=== PATIENT | male | born 1975 | race African-American/Black ===

== ENCOUNTER 2025-07-25 23:50 | Emergency (ER) | payer OTHER, SELFPAY ==
--- NOTE | 2025-07-25 23:56 | ECG_ITS ---
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 Measurements Intervals [place] Rate: 59 P: 57 ID: [id number] QRS: 90 QRSD: 92 T: 30 QT: 428 QTc: 428 Interpretive Statements 1100 Sinus rhythm 2231 First degree AV block 4068 Nonspecific [place] abnormality 9150 abnormal ECG No previous ECG available for comparison Electronically Signed On 07-26-2025 5:54:52 EST by BABS GREEN M.D.
[2025-07-25 23:59] VITALS: BP 145/94; PULSE 75; TEMP 36.9; O2SAT 98; BMI 24.7
--- NOTE | 2025-07-26 00:08 | ED.GENADUL1 ---
HPI HPI - General Adult General Chief complaint: Psychiatric Symptoms Stated complaint: SUICIDAL IDEATION Time Seen by Provider: 07/25/25 23:56 Source: patient Mode of arrival: walk-in History of Present Illness HPI narrative: 49-year-old male presented to the emergency department to be evaluated from a psychiatric basis. He lives in the [facility] and drinks alcohol every day. He wanted to get help and went to [facility] and arrived there few hours ago. The last time he drank alcohol was 6 or 7 hours ago. He at the alcohol treatment center was reportedly upset and shaking and talking about hurting himself. He does not seem to have any physical complaints now. The patient reportedly tried to hang himself 2 days ago with a belt but the belt broke. Related Data Home Medications ?Medication ?Instructions ?Recorded ?Confirmed ergocalciferol (vitamin D2) 1,250 1,250 mcg PO DAILY 07/26/25 07/26/25 mcg (50,000 unit) capsule (Vitamin D2) folic acid 1 mg tablet 1 mg PO DAILY 07/26/25 07/26/25 hydroxyzine pamoate 50 mg capsule 50 mg PO Q8H 07/26/25 07/26/25 ibuprofen 800 mg tablet 800 mg PO Q8H PRN pain 07/26/25 07/26/25 melatonin 5 mg tablet 10 mg PO QPM 07/26/25 07/26/25 Allergies Allergy/AdvReac Type Severity Reaction Status Date / Time No Known Drug Allergies Allergy Verified 07/26/25 00:06 Opioid HPI Opioid Management Most Recent Opioid Data: Ur Phencyclidine Scrn, (NEGATIVE) Negative Today, 00:14 Review of Systems ROS Narrative A ten point review of systems is negative except as noted above. PFSH PFSH Medical History Suicide attempt ?T14.91XA - Suicide attempt, initial encounter (ICD-10) Depression ?F32.A - Depression, unspecified (ICD-10) Alcohol abuse ?F10.10 - Alcohol abuse, uncomplicated (ICD-10) Exam Narrative Exam Narrative: Nurses note and vital signs reviewed General:The patient appears well and in no apparent distress.Patient is sitting on the edge of the cart. Skin:Warm, dry, no pallor noted.There is no rash noted. No shi around his neck is noted. No swelling or bruising. Head:Normocephalic, atraumatic Eye: Normal conjunctiva, no drainage Ears, Nose, Mouth, and Throat: oral mucosa is moist. Nares patent. Cardiovascular:Regular Rate and Rhythm, not tachycardic Respiratory:Patient is in no distress, no accessory muscle use, lungs are clear to auscultation, no wheezing, rales or rhonchi Back:non-tender GI: Soft and nontender Musculoskeletal: The patient has no evidence of calf tenderness, no pitting edema, symmetrical pulses noted bilaterally Neurological:A&O x4, normal speech Psychiatric:Cooperative Constitutional Vital Signs, click to edit/add: Last Vital Signs Temp 98.5 F 07/25/25 23:59 Pulse 75 07/25/25 23:59 Resp 18 07/25/25 23:59 BP 145/94 H 07/25/25 23:59 Pulse Ox 98 07/25/25 23:59 O2 Del Method Room Air 07/25/25 23:59 Course Vital Signs Vital signs: Vital Signs Temperature 98.5 F 07/25/25 23:59 Pulse Rate 75 07/25/25 23:59 Respiratory Rate 18 07/25/25 23:59 Blood Pressure 145/94 H 07/25/25 23:59 Pulse Oximetry 98 07/25/25 23:59 Oxygen Delivery Method Room Air 07/25/25 23:59 Temperature 98.5 F 07/25/25 23:59 Pulse Rate 75 07/25/25 23:59 Respiratory Rate 18 07/25/25 23:59 Blood Pressure 145/94 H 07/25/25 23:59 Pulse Oximetry 98 07/25/25 23:59 Oxygen Delivery Method Room Air 07/25/25 23:59 Medical Decision Making [facility] Narrative Medical decision making narrative: The patient is medically cleared and is being held for mental health services to interview him in the morning and the patient will be signed out to Dr. Melton at change of shift. Differential Diagnosis Differential Diagnosis: Suicidal ideation, depression, alcohol abuse Lab Data Lab results reviewed: Yes I reviewed the patient's lab results Labs: Lab Results 07/26/25 07/26/25 Range/Units 00:14 00:28 WBC 8.9 (4.0-11.0) 10^3/uL RBC 4.88 (4.70-6.10) 10^6/uL Hgb 15.8 (14.0-18.0) g/dL Hct 43.9 (42.0-54.0) % MCV 90.0 (80.0-94.0) fL MCH 32.4 (25.9-34.0) pg MCHC 36.0 H (29.9-35.2) g/dL RDW 15.4 H (11.0-15.0) % Plt Count 291 (150-450) 10^3/uL MPV 9.5 (9.5-13.5) fL Neut % (Auto) 63.3 (43.0-75.0) % Lymph % (Auto) 28.0 (20.5-60.0) % Jack % (Auto) 6.7 (1.7-12.0) % Eos % (Auto) 1.0 (0.9-7.0) % Baso % (Auto) 0.8 (0.2-2.0) % Neut # (Auto) 5.6 (1.4-6.5) 10^3/uL Lymph # (Auto) 2.5 (1.2-3.8) 10^3/uL Jack # (Auto) 0.6 (0.3-0.8) 10^3/uL Eos # (Auto) 0.1 (0.0-0.7) 10^3/uL Baso # (Auto) 0.1 (0.0-0.1) 10^3/uL Abs Immat Gran (auto) 0.02 (0.00-0.03) 10^3/uL Imm/Tot Granulo (auto) 0.2 (0.0-0.5) % Sodium 144 (136-145) mmol/L Potassium 4.4 (3.5-5.1) mmol/L Chloride 106 (98-107) mmol/L Carbon Dioxide 26.9 (21.0-32.0) mmol/L Anion Gap 15.5 BUN 13.0 (7.0-18.0) mg/dL Creatinine 0.90 (0.70-1.30) mg/dL Est GFR ( Amer) >60 (>=60 mL/min/1.73m^2) Est GFR (Non-Af Amer) >60 (>=60 mL/min/1.73m^2) BUN/Creatinine Ratio 14.4 Glucose 100 (74-106) mg/dL Calcium 8.5 (8.5-10.1) mg/dL Urine Color Lt. yellow (YELLOW) Urine Clarity Clear (CLEAR) Urine pH 6.5 (5.0-9.0) Ur Specific [place] 1.010 (1.005-1.025) Urine Protein Negative (NEG/TRACE) mg/dL Urine Glucose (UA) Negative (NEGATIVE) mg/dL Urine Ketones Negative (NEGATIVE) mg/dL Urine Occult Blood Small A (NEGATIVE) Urine Nitrite Negative (NEGATIVE) Urine Bilirubin Negative (NEGATIVE) Urine Urobilinogen 1.0 (0.2-1.0) EU/dL Ur Leukocyte Esterase Negative (NEGATIVE) Urine RBC 2-5 A (0-2) #/HPF Urine WBC 0-2 A (NONE SEEN) #/HPF Ur Squamous Epith Cells Rare (NONE/RARE) #/LPF Urine Crystals None seen (None Seen) #/HPF Urine Bacteria Trace A (NONE SEEN) #/HPF Urine Casts None seen (NONE SEEN) #/LPF Urine Mucus None seen (NONE SEEN) Ur Culture Indicated? No Salicylates 5.9 (<=19.9) mg/dL Urine Opiates Screen Negative (NEGATIVE) Ur Buprenorphine Scrn Negative (NEGATIVE) Ur Oxycodone Screen Negative (NEGATIVE) Urine Methadone Screen Negative (NEGATIVE) Acetaminophen <2.0 L (10.0-30.0) ug/mL Ur Barbiturates Screen Negative (NEGATIVE) U Tricyclic Antidepress Negative (NEGATIVE) Ur Phencyclidine Scrn Negative (NEGATIVE) Ur Amphetamines Screen Negative (NEGATIVE) U Methamphetamines Scrn Negative (NEGATIVE) U Benzodiazepines Scrn Negative (NEGATIVE) Urine Cocaine Screen Negative (NEGATIVE) U Cannabinoids Screen Negative (NEGATIVE) Ethanol Quant 187 mg/dL ECG Data Attestation: I personally reviewed and interpreted this ECG as follows: (EKG on my interpretation shows sinus rhythm with first-degree block and no acute findings) Discharge Plan Discharge Patient Disposition: Still a Patient
[2025-07-26 00:21] LABS: Glucose Urine UA NEGATIVE (NEGATIVE)
[2025-07-26 00:31] LABS: Cannabinoid Screen Urine NEGATIVE (NEGATIVE); Cast Seen? NONE SEEN #/LPF (NONE SEEN); Crystals Seen? None Seen #/HPF (None Seen); Methamphetamines Screen Urine NEGATIVE (NEGATIVE); Tricyclic Antidepressant Urine NEGATIVE (NEGATIVE); Urine Culture Indicated NO
--- OUTSIDE RECORDS SUMMARY | 2025-07-26 00:32 | XMS_ITS | Data Portability ---
Author Organization DAT [facility], [facility] Address [address] [place] [address] Assessment No assessment recorded. Plan of Treatment Reminders Order DateSubmit DateProviderLast Modified ByOrganization DetailsLast Modified TimeDetailsAppointmentsNone recorded.Labglucose, fingerstick, blood10/21/2024 10/21/2024sabdallahIn-House Test, For Internal Use Only, Do Not Delete/merge, [id number] 12:51:46Referraldermatologist referral - dermoid cyst - forehead /[id number] [address] [place] [address], [address], 12/28/2023 08:46:14 ProceduresNone recorded.SurgeriesNone recorded.ImagingNone recorded.Medication Ordersdoxycycline monohydrate 100 mg zbxxxhi37[facility] [id number], [address], [place], [address], 10/21/2024 11:21:30prednisone 20 mg fzorzl86[facility] [id number], [address], [place], [address], 10/21/2024 11:21:27Mucinex 1,200 mg tablet, extended zwnawnu11 [facility] [id number], [address], [place], [address], Ph [phone] 11:21:24promethazine-DM 6.25 mg-15 mg/5 mL oral syrup [facility] [id number], [address], [place], [address], Ph [phone] [facility] 10:48:26Medrol (Shady) 4 mg tablets in a dose packOrlando Health [facility] [id number], [address], [place], [address], Ph [phone] [facility] 10:48:12cetirizine 10 mg izhtud6904/09/2024 10/21/2024[facility] [id number], [address], [place], [address], Ph ([phone]) [facility] 10:48:08Capron DMT 30 mg-30 mg eovmol5303/25/2024 04/09/2024[facility] [id number], [address], [place], [address], Ph ([phone]) [facility]-[id number] 17:04:39albuterol sulfate HFA 90 mcg/actuation aerosol xgfbbou99[facility] [id number], [address], [place], [address], Ph ([phone] [facility]-[id number] 10:48:07doxycycline hyclate 100 mg tzlcmts66[facility] [id number], [address], [place], [address], Ph :04:[phone] monohydrate 100 mg nqguysz19[facility] [id number], [address], [place], [address], Ph :21:21Mucinex DM 60 mg- 1,200 mg tablet,extended release 12 hrOr[facility] [id number], [address], [place], [address], Ph :21:[phone] 20 mg echxkx68[facility] [id number], [address], [place], [address], Ph :21:32benzonatate 200 mg tcjeayy57[facility] [id number], [address], [place], [address], Ph :21:[phone] Patient TargetsNo targets recorded. Patient Instructions Encounter Date Encounter Id Patient Instructions Last Modified By Organization Details Last Modified Time 11/27/2023 [id number] History and physical exam consistent with bronchitis. No evidence of pneumonia, sepsis or other acute cardiopulmonary process. Will treat with abx, steroids, cough medication as well as albuterol inhaler. Return to the office with any new or worsening symptoms. Patient agreeable with plan and verbalized understanding. sabdallah Not available 11/27/2023 18:52:25 11/30/2023 [id number] Epidermoid cyst of forehead Please f/u with surgical dental assistant for further evaluation and treatment, referral in place nishant Not available 11/30/2023 12:38:49 03/25/2024 [id number] BRONCHITIS Begin and complete entire antibiotic Begin and complete capron-DMT as directed use the albuterol inhaler as needed Other symptomatic relief- tylenol, ibuprofen, Vicks VapoRub Consider humidifier in room Push fluids and get plenty of rest Follow up with PCP in 3-5 days if symptoms fail to improve or worsen; sooner if needed Report to ER for difficulty breathing, shortness of breath, fever over 102 severe abdominal pain, or if symptoms worsen rkmpqpo80Sgz uhgvupikm78/17/2024 18:29:56Today patient is evaluated through telemedicine approx. [address]. Patient was asked and provided verbal consent to this telemedicine encounter. Patient is aware of the risks involved with telemedicine visit including limited diagnosis, treatment and possible need for re-evaluation. Pt is 48 year old with PMH of GERD, anxiety, HTN that presents with history consistent with acute bacterial bronchitis due to cough lasting for more than a week. Unable to complete PE due to telemed visit- pt was able to converse with ease without any audible resp. distress or needing to pause to catch breathe. Disposition: The patient was discharged home with a diagnosis bacterial bronchitis. The patient wasadvised to begin and complete the entire course of antibiotics as directed. It was recommended for the patient to call PCP to schedule a follow-up appointment should the symptoms continue to persist or worsen. Pt was educated on any fevers over 102, SOB, or CP patient would need to go to the ER forfurther evaluation. Pt was told that due to visit being over telemed, if S/S get worse he will either need to be seen NINA or go to the ER if S/S are severe. As the provider I am maintaining compliant with delivering telehealth due to patient is located in the [facility] during this visit at [facility]. Patient educated due to limited examination (no PE), that if S/S get worse or change pt will need to go to the emergency department. Patient should call PCP in 1-2 days if S/S do not change.piiagxq47Mhe /17/2024 18:36:13 [id number] to quit smokingspappachanNot qczoeubkb33/01/2024 17:24:30Learning About Benefits of Quitting SmokingspappachanNot available 04/09/2024 17:24:30Symptoms are consistent w/ a viral respiratory syndrome. Pt is strongly advised to quit smoking Pt has tried multiple trials of antibiotics and failed. Today trials with medrol dose pack and cough medication and antihistamine for as needed use. X-ray behavioral technician not available today to take chest X-ray Start taking medication as prescribed drink plenty of water. Advised to f/u with PCP in 3 - 5 days if his symptoms fails to resolve, Report to ER for inability to tolerate fluids, chest pain, shortness of breath, severe abdominal pain, fever over 102, Hemoptysis/hematemesis or any worsening sympt oms. Pt verbalized understanding of the A/PspappachanNot zgnlyykxd49/01/2024 17:30:[id number] on history of persistent sinus symptoms, likely bacterial sinusitis and URI. No evidence of Meningitis, OM, Strep or Pneumonia. Will start on oral antibiotics today. Encouraged patient to continue symptomatic and supportive care measures. RTC with any new or worsening symptoms. Patient verbalized understanding and agreeable with plan. blood sugar was not significantly elevated given he ate prior to arrival.Wilder available 10/21/2024 12:52:14 Reason for Referral Colon Therapist Referral for E pidermoid cyst of skin dermoid cyst - forehead dermoid cyst - forehead Referring Physician: Michelle Joy, Family Medicine, Encounter Date: 11/30/2023 Results Created Date Observation Date Name Description Value Unit Range Abnormal Flag Note LastModifiedBy Organization Detail LastModifiedTime 10/21/2024 10/21/2024 glucose, fingerstick, blood Blood Gluc ose: mg/dl normal Not AvailableIn-House Test For Internal Use Only, Do Not Delete/merge, [id number] 12:51:29 Result Notes None recorded. Problems Name Problem SNOMED Code Status Onset Date Resolution Date Notes Provider Name and Address Organization Details Recorded Time Anxiety 24573618 [facility] 09/12/2023 [facility] 17:53:24Type 2 diabetes [id number] Shhawx9309/12/2023[facility]23 17:53:45Hypertensive wmnvkuxo51448444 Dmyyvf3109/12/2023[facility]23 17:53:57Acid wgdlgs101319205Pmwrtp 09/12/2023[facility]/2023 17:54:[id number]/04/2024 [facility] 17:54:34 Notes:PATIENT TOOK HIMSELF O FF ALL MEDS EXCEPT HTN. Problem Notes None recorded. Medical Equipment None Reported. Allergies No known drug allergies Medications Name Sig Start Date Stop Date Status Note LastModified by Organization Details LastModified Time cyclobenzaprine 10 mg tablet TAKE 1 TABL ET BY MOUTH THREE TIMES A DAY FOR 3 DAYS 09/12/2023ompletedNot AvailableNot AvailableNot Availableamoxicillin 500 mg capsuleTAKE ONE CAPSULE BY MOUTH THREE TIMES DAILY09/12/2023ompletedNot AvailableNot AvailableNot Availablemethocarbamol 500 mg tabletTAKE 2 TABLETS BY MOUTH THREE TIMES DAILY XKNFUY8511/27/2023ompletedNot AvailableNot Available Not Availablemetformin 500 mg oowpry5209/12/2023ompletedNot AvailableNot AvailableNot Availablepromethazine-DM 6.25 mg-15 mg/5 mL oral syrupTake 5 mL every 6 hours by oral route as needed, for cough.ompleted Not AvailableNot AvailableNot Availableprednisone 10 mg tabletTAKE 1 TABLET EVERY DAY BY ORAL ROUTE FOR 5 DAYS.09/12/2023ompletedNot AvailableNot Available Not Availabledoxycycline hyclate 100 mg capsuleTake 1 capsule twice a day by oral route.ompletedNot AvailableNot AvailableNot Available lidocaine 4 % topical patch09/12/2023ompletedNot AvailableNot AvailableNot Availabletrazodone 50 mg hetgnp7611/27/2023ompletedNot AvailableNot AvailableNot Availabletriamcinolone acetonide 0.5 % topical cream09/12/2023ompletedNot AvailableNot AvailableNot Availablecetirizine 10 mg tabletTake 1 tablet every day by oral route as needed.ompletedNot AvailableNot AvailableNot Availableibuprofen 800 mg sjtqty0909/12/2023ompletedNot AvailableNot AvailableNot Availabletizanidine 4 mg tabletTAKE 1 TABLET BY MOUTH EVERY 8 HOURS 11/27/2023ompletedNot AvailableNot AvailableNot Availablebenzonatate 200 mg capsuleTake 1 capsule 3 times a day by oral route for 10 days.11/27/2023 11/30/2023ompletedNot AvailableNot AvailableNot Availablelisinopril 20 mg kmkoqn9510/21/2024ompletedNot AvailableNot AvailableNot AvailableMedrol (Shady) 4 mg tablets in a dose packstart taking medrol dose pack as efxjvajr83/01/2024 10/21/2024ompletedNot AvailableNot AvailableNot Availableprednisone 20 mg tabletTake 1 tablet twice a day by oral route for 5 days.5activeNot AvailableNot AvailableNot Availablesertraline 100 mg wbtgso4511/27/2023ompleted Not AvailableNot AvailableNot AvailableZithromax Z-Shady 250 mg tabletTAKE 2 TABLETS (500 MG) BY ORAL ROUTE ONCE DAILY FOR 1 DAY THEN 1 TABLET (250 MG) BY ORAL ROUTE ONCE DAILY FOR 4 DAYS4completedNot AvailableNot AvailableNot Availablethiamine HCl (vitamin B1) 100 mg xxozkg9209/12/2023ompleted Not AvailableNot AvailableNot Availablehydroxyzine HCl 50 mg hwmfvp4511/27/2023 completedNot AvailableNot AvailableNot Availableamlodipine 5 mg lwnchl7309/12/2023 completedNot AvailableNot AvailableNot Availablesulfamethoxazole 800 mg- trimethoprim 160 mg ajvkph6409/12/2023ompletedNot AvailableNot AvailableNot Availableomeprazole 40 mg capsule,delayed asddccg7711/27/2023ompletedNot AvailableNot AvailableNot Availableacetaminophen 500 mg tablettake 1 tablet by mouth every 8 hours09/12/2023ompletedNot AvailableNot AvailableNot Available amoxicillin 500 mg tablettake 1 tablet by mouth three times a day09/12/2023 completedNot AvailableNot AvailableNot Availableondansetron 8 mg disintegrating icbvtw5109/12/2023ompletedNot AvailableNot AvailableNot AvailableTessalon Perles 100 mg capsuleTake 1 capsule 3 times a day by oral route as needed.08/15/2023 4completedNot AvailableNot AvailableNot Availablefamotidine 20 mg ifwqqy3311/27/2023ompletedNot AvailableNot AvailableNot Availabletamsulosin 0.4 mg capsuleTAKE ONE CAPSULE BY MOUTH EVERY DAY11/27/2023ompletedNot AvailableNot AvailableNot Availableamlodipine 10 mg xknptq0004/09/2024ompletedNot AvailableNot AvailableNot Availabledoxycycline monohydrate 100 mg capsuleTake 1 capsule twice a day by oral route for 10 days.5activeNot AvailableNot AvailableNot Availablecephalexin 500 mg oezzkkm8409/12/2023ompletedNot AvailableNot Available Not Availablelosartan 25 mg qnulpo0009/12/2023ompletedNot AvailableNot Available Not Availablefolic acid 1 mg cuxlpq7711/27/2023ompletedNot AvailableNot Available Not AvailableTussin DM 10 mg-100 mg/5 mL oral liquidTAKE 10 ML EVERY 4 HOURS BY ORAL ROUTE NEEDED.09/12/2023ompletedNot AvailableNot AvailableNot Available ibuprofen 600 mg tabletTAKE 1 TABLET BY MOUTH EVERY 6 HOURS09/12/2023ompleted Not AvailableNot AvailableNot Availablealbuterol sulfate HFA 90 mcg/actuation aerosol inhalerInhale 2 puffs every 4 hours by inhalation route.03/25/2024 5completedNot AvailableNot AvailableNot Availablelosartan 50 mg- hydrochlorothiazide 12.5 mg tablettake 1 tablet by mouth once daily11/27/2023 completedNot AvailableNot AvailableNot Availablesertraline 50 mg tablet 09/12/2023ompletedNot AvailableNot AvailableNot Availablenaproxen 500 mg tablet TAKE 1 TABLET BY MOUTH TWICE A DAY4completedNot AvailableNot Available Not Availablemetoclopramide 10 mg wygvpe4209/12/2023ompletedNot AvailableNot AvailableNot Availableamoxicillin 875 mg-potassium clavulanate 125 mg tablet 09/12/2023ompletedNot AvailableNot AvailableNot Availableoxycodone 5 mg tablet 09/12/2023ompletedNot AvailableNot AvailableNot Availablehydroxyzine pamoate 25 mg aghhhtx7809/12/2023ompletedNot AvailableNot AvailableNot Availableazithromycin 500 mg hpciho2709/12/2023ompletedNot AvailableNot AvailableNot AvailableNovolog FlexPen U-100 Insulin aspart 100 unit/mL (3 mL) rrtrqvdthpuy12/20/2024ompleted Not AvailableNot AvailableNot AvailableAlcohol Prep Pads09/12/2023ompletedNot AvailableNot AvailableNot Availablelactulose 10 gram/15 mL oral solution 09/12/2023ompletedNot AvailableNot AvailableNot LvnspwrunCqvcxsbh99/12/2025 completedNot AvailableNot AvailableNot Vejujsoofgeliffayklafh76/12/2025ompleted Not AvailableNot AvailableNot AvailableLantus Solostar U-100 Insulin 100 unit/mL (3 mL) subcutaneous penINJECT 30 UNITS UNDER THE SKIN AT VKWKQEN3411/27/2023 completedNot AvailableNot AvailableNot AvailableMucinex 1,200 mg tablet, extended releaseTake 1 tablet every 12 hours by oral route.5activeNot AvailableNot AvailableNot AvailableMucinex DM 60 mg-1,200 mg tablet,extended release 12 hrTake 1 tablet every 12 hours by oral route./ completedNot AvailableNot AvailableNot AvailableComfort EZ Pen Readlyn 31 gauge x 3/16 USE DIRECTED WITH INSULIN AT XPKKQHV84/04/2024completedNot Available Not AvailableNot AvailableEasy Comfort Lancets 30 gauge4completedNot AvailableNot AvailableNot AvailableTrue Metrix Glucose Test Strip09/12/2023 completedNot AvailableNot AvailableNot AvailableTrue Metrix Glucose Meter 4completedNot AvailableNot AvailableNot AvailableCapron DMT 30 mg-30 mg tabletTake 1 tablet every 6-8 hours by oral route for 7 days.03/25/2024 4completedNot AvailableNot AvailableNot AvailableFlowflex COVID-19 Antigen Home Test kit4completedNot AvailableNot AvailableNot Available albuterol 90 mcg-budesonide 80 mcg/actuation HFA aerosol inhalerInhale by inhalation route.5completedNot AvailableNot AvailableNot Available Vitals Date Recorded Body height Heart rate Body temperature Body mass index (BMI) Body weight Oxygen saturation Oxygen saturation in Arterial blood by Pulse oximetry Systolic And Diastolic Provider Name and Address Organization Details Last Updated DateTime 5 167.64 cm 70 /min 98 [degF] 25.6 kg/m2 94346.7 5 g 98 % 98 % 130/82 mm[Hg] [facility] 5 10:47:29 Date Recorded Body height Heart rate Body temperature Body mass index (BMI) Body weight Oxygen saturation Oxygen saturation in Arterial blood by Pulse oximetry Systolic And Diastolic Provider Name and Address Organization Details Last Updated DateTime 4 167.64 cm 83 /min 98.3 [degF] 25.7 kg/m2 88345.1 9 g 99 % 99 % 122/78 mm[Hg] [facility] 4 18:39:06 Date Recorded Body height Heart rate Body temperature Body mass index (BMI) Body weight Oxygen saturation Oxygen saturation in Arterial blood by Pulse oximetry Systolic And Diastolic Provider Name and Address Organization Details Last Updated DateTime 4 167.64 cm 87 /min 98.4 [degF] 26.1 kg/m2 61153.8 1 g 96 % 96 % 126/90 mm[Hg] Espinoza Neri [facility] 4 12:20:47 Date Recorded Body height Heart rate Body temperature Body mass index (BMI) Body weight Oxygen saturation Oxygen saturation in Arterial blood by Pulse oximetry Systolic And Diastolic Provider Name and Address Organization Details Last Updated DateTime 4 167.64 cm 60 /min 98.3 [degF] 24.4 kg/m2 67263.8 8 g 98 % 98 % 122/76 mm[Hg] Kandis Gonsalves [facility] 4 18:20:53 Date Recorded Body height Body mass index (BMI) Body weight Body temperature Heart rate Oxygen saturation Oxygen saturation in Arterial blood by Pulse oximetry Systolic And Diastolic Provider Name and Address Organization Details Last Updated DateTime 4 167.64 cm 25.5 kg/m2 10201.3 1 g 98.3 [degF] 94 /min 98 % 98 % 120/80 mm[Hg] Franco Delatorre [facility] 4 17:04:25 Social History Question Answer Notes LastModified by Organization D etails LastModified Time Tobacco Smoking Status Current Every Day Smoker Kandis Gonsalves [facility]09/12/2023 17:55:51What Is Your Level Of Caffeine Consumption?Jhnpsememdt88Ichwxoikjrp not hzlwjepey17/07/2023Which Illicit Or Recreational Drugs Have You Used?Atshmbbmhevuawbk49Ipsyeefibio not available 08/15/2023What Was The Date Of Your Most Recent Tobacco Screening?10/21/2024 syvwccp8Kfpzsxvyifv not hsrackyyy71/12/2025How Much Tobacco Do You Smoke?1 PPD ssplsnv9Ytnweykgkpa not ehmmxhrth03/04/2024 Sex: Unknown Functional Status Question Answer Note LastModified by Organization D etails LastModified Time Do you use any illicit or recreational drugs? Ye s kbcsyfl63Dbmkbbvhxqe not asgsawvwj69/07/2023Do you or have you ever used any other forms of tobacco or nicotine?Kmbqafrfo91Oejeijgrgqf not available 08/15/2023What is your level of alcohol consumption?Ngwzgqubpwnzkqdd40 Information not amrzqzgxp22/01/2024 Mental Status None recorded. Family History Nothing Reported. Medical History No medical history recorded. Past Encounters Encounter ID Performer Location Encounter Start Date Encounter Closed Date Diagnosis/Indication Diagnosis SNOMED-CT Code Diagnosis ICD10 Code Diagnosis IMO Codes Diagnosis Note [id number] [place] [address] 08/15/2023 16:36:45 08/15/2023 17:26:29 Acute bronchitis 72997265 J20.9 [id number] [address] 09/12/2023 17:15:4601 18:59:33Acute ovcebubtbg65399945H69.9 Acute xemvriyzg73438626R82.90 [id number] [address] 11/27/2023 18:30:50011/27/2023 18:58:57Acute tmwaauruvf27198917T79.9 [id number] [address] 11/30/2023 12:10:1203 13:21:59Epidermoid cyst of acax872475068D33.0 [id number] [address] 03/25/2024 18:11:5307 18:37:56Acute bacterial xvrjsmtngs789801488J20.9 [id number] [address] 04/09/2024 17:01:1308 18:14:00Persistent gvhoa159144012E51.3 Tobacco dependence caused by xbcpgizahd92707275048266211Q24.[id number] [address] 10/21/2024 10:23:46010/21/2024 13:33:59Acute frontal wapfseqwv81576766Y07.10 [id number] Acute upper respiratory celcsdvto55078733M59.9 2456 Blood glucose outside reference dgeiu228136254W85.09 [id number] Health Concerns Section Related Observation LastModified by Organization Detai ls LastModified Time None Recorded Concern Status LastModified by Organization Details LastModified Time None Recorded Advance Directives Directive None Recorded Payers Insurance Date Sequence Insurance Name Policy Number Policy Ramirez Covered Member ID Ramirez Member ID Guarantor Name 10/21/2024 2 [facility] [place] - DOS ON OR AFTER 2022 (MEDICAID REPLACEMENT - HMO) José Miguel [id number] [id number]-LP: ANTHEM BCBS (O) [id number] [facility] ([facility]) OHONEXMichael [id number] [id number]-OT: ANTHEM BCBS (O) [id number] [id number]) José Miguel [id number] [id number]-LI[facility] ([facility]ICAID [facility]PLAC[facility] - HMO)José Miguel [id number] Kelly [facility] (MEDICAID REPLACEMENT - HMO)José Miugel Vo [id number] Kelly Notes Date Note Type Note Provider Name and Address Orga nization Details Recorded Time 11/27/2023 text/html cough and chest congestion x 3 weeks. states SOB and wheezing as well. denies any fevers or chills.states now has a runny nose. denies any sinus pressure, ear pain or sore throat. denies any known ill contacts or exposures.Suzy coleman [facility] Kpjxbn9711/27/2023 18:53:48011/30/2023text/htmlRash/Skin LesionReported by PatientHPIFor location, patient reportsforehead. For quality, patient reportsnot itchy,not painful,not bleeding, andstable. For severity, patient reportsmoderate. For duration, patient reportshas noted for >3 months. For onset/timing, patient reportsgradual onset. For context, patient reportsno new detergents or skin products,no one else with similar rash, andnot scratching . For alleviating factors, patient reportsnothing gives relief. For aggravating factors, patient reportsnothing makes it worse. For associated symptoms, patient reportsno fever,no cold symptoms,no nausea,no vomiting,no diarrhea,no urinary symptoms,no chills,no fatigue, andno change in weight.ROS as noted in the HPI MICHELLE JOY [facility]11/30/2023 12:39:15003/25/2024text/htmlCoughReported by PatientHPIFor quality, patient reportsharsh(dry). For severity, patient reportsworseningbut reportsmild. For timing, patient reportsworsebut reports gradual. For context, patient reportsworse at nightandhistory of bronchitisbut reportsnon-smoker(hx of seasonal allergies). For associated symptoms, patient reportspost nasal dripbut reportsno fever,no chills,no nausea, andno vomiting. For duration, patient reportssymptoms lasting over 2 weeks. For modifying factors, patient reportsotc medication.Jakob Griffiths [facility]03/25/2024 18:51:0904/09/2024text/htmlROS as noted in the HPI Patient presents with cough x 3 months. Has used multiple antibiotics trials, albuterol inhaler andfailed. states no relief with cough. Reports dry cough. States he cannot sleep at night due to cough. Pt denies SOB or wheezing, denies any fevers or chills. states has a runny nose. denies any sinuspressure, ear pain or sore throat. Pt smokes 1 PPD. Denies any known ill contacts or exposures.[facility] 17:30:4802text/html headache x 5-6 days. states has nasal congestion as well as cough and sore throat. states went to [facility] on saturday and gave him nausea medication. states he was tested for both COVID and Flu both of which were negative. states headaches have persisted. denies any fevers, chills or body aches. states he had head pressure. concerned for high blood sugar and wants it checked. denies any other symptoms or concerns.Suzy coleman, [place] - [facility] Qhdnoe3310/21/2024 12:52:34
[2025-07-26 00:35] LABS: Hematocrit 43.9 % (42.0-54.0); Hemoglobin 15.8 g/dL (14.0-18.0); Immature Granulocytes Abs Auto 0.02 10^3/uL (0.00-0.03); Immature Granulocytes Pct Auto 0.2 % (0.0-0.5); Lymphocytes Absolute Auto 2.5 10^3/uL (1.2-3.8); Mean Corpuscular HGB Conc 36.0 g/dL (29.9-35.2); Mean Corpuscular Hemoglobin 32.4 pg (25.9-34.0); Mean Corpuscular Volume 90.0 fL (80.0-94.0); Platelet Count 291 10^3/uL (150-450); Red Blood Count 4.88 10^6/uL (4.70-6.10); White Blood Count 8.9 10^3/uL (4.0-11.0)
[2025-07-26 00:54] LABS: Anion Gap 15.5; Blood Urea Nitrogen 13.0 mg/dL (7.0-18.0); Calcium 8.5 mg/dL (8.5-10.1); Carbon Dioxide 26.9 mmol/L (21.0-32.0); Chloride 106 mmol/L (98-107); Estimated GFR (African America >60 (>=60 mL/min/1.73m^2); Estimated GFR (Non-African Ame >60 (>=60 mL/min/1.73m^2); Glucose 100 mg/dL (74-106); Potassium 4.4 mmol/L (3.5-5.1); Salicylate 5.9 mg/dL (<=19.9); Sodium 144 mmol/L (136-145)
[2025-07-26 00:55] LABS: Acetaminophen <2.0 ug/mL (10.0-30.0)
--- NOTE | 2025-07-26 02:54 | PC.NURSE ---
pt continues to sleep, constant observer continues
[2025-07-26 04:39] VITALS: BP 118/75; PULSE 68; TEMP 36.7; O2SAT 94
[2025-07-26 07:32] VITALS: BP 137/87; O2SAT 97
== END 2025-07-26 11:45 ==
PROVIDERS: Emergency Provider Emergency Medicine
DX: F32.9 Major depressive disorder, single episode, unspecified (principal); Z91.51 Personal history of suicidal behavior
CPT/HCPCS: 36415; 80048; 80179; 80307; 80320; 80329; 81001; 85025; 93005; 99285